=== PATIENT | male | born 1965 | race Two or more races ===

== ENCOUNTER 2018-12-10 14:22 | Emergency (ER) | payer OTHER, MEDICAID ==
[~2018-12-10] VITALS: Ht 172.7 cm; Wt 96.2 kg
[~2018-12-10 14:22] MED LIST: ASPI81CH43 PO; ATOR40TA52 PO
[2018-12-10 14:31] VITALS: BP 106/73
== END 2018-12-10 15:48 | disposition home or self-care (01) ==
LOC: ER 14:24
DX: S93.401A Sprain of unspecified ligament of right ankle, initial encounter (principal); S16.1XXA Strain of muscle, fascia and tendon at neck level, initial encounter; E78.5 Hyperlipidemia, unspecified; I10 Essential (primary) hypertension; Z79.82 Long term (current) use of aspirin; Z79.899 Other long term (current) drug therapy; Y93.89 Activity, other specified; V49.49XA Driver injured in collision with other motor vehicles in traffic accident, initial encounter; Y99.8 Other external cause status; Y92.488 Other paved roadways as the place of occurrence of the external cause
CPT/HCPCS: 72040; 73630

== ENCOUNTER 2019-01-28 09:53 | Emergency (ER) | payer OTHER, MEDICAID ==
[~2019-01-28] VITALS: Ht 172.7 cm; Wt 95.3 kg
[2019-01-28] MEDS ORDERED: ERYTHROMY OPTH OINT 5mg/gm 1gm OP ONE (17:30)
[2019-01-28] MEDS ORDERED: TETRACAINE HCL 0.5% OPTH(EYE) SOLN 4ML RIGHTEYE ONE (17:30)
[2019-01-28 17:39] VITALS: BP 105/66
[2019-01-28] MEDS ORDERED: TETRACAINE HCL 0.5% OPTH(EYE) SOLN 4ML ONE (17:40)
[2019-01-28] MEDS ORDERED: FLUORESCEIN SOD 1 MG TEST STRIP RIGHTEYE ONE (17:45)
== END 2019-01-28 15:27 | disposition home or self-care (01) ==
LOC: ER 10:01
DX: S00.11XA Contusion of right eyelid and periocular area, initial encounter (principal); S05.01XA Injury of conjunctiva and corneal abrasion without foreign body, right eye, initial encounter; I25.10 Atherosclerotic heart disease of native coronary artery without angina pectoris; E78.00 Pure hypercholesterolemia, unspecified; I10 Essential (primary) hypertension; Z79.82 Long term (current) use of aspirin; Z79.899 Other long term (current) drug therapy; X58.XXXA Exposure to other specified factors, initial encounter; Y93.89 Activity, other specified; Y92.89 Other specified places as the place of occurrence of the external cause; Y99.8 Other external cause status
CPT/HCPCS: 70480

== ENCOUNTER 2022-02-09 11:15 | Emergency (ER) | payer OTHER, MEDICAID ==
[~2022-02-09] VITALS: Ht 172.7 cm; Wt 77.2 kg
[2022-02-09] MEDS ORDERED: NAP500T PO (12:58)
[2022-02-09] MEDS ORDERED: CYCL-837 PO (12:58)
[2022-02-09 15:38] VITALS: BP 118/74
== END 2022-02-09 16:05 | disposition home or self-care (01) ==
LOC: ER 11:15
DX: S22.008A Other fracture of unspecified thoracic vertebra, initial encounter for closed fracture (principal); S39.012A Strain of muscle, fascia and tendon of lower back, initial encounter; S16.1XXA Strain of muscle, fascia and tendon at neck level, initial encounter; I10 Essential (primary) hypertension; I25.10 Atherosclerotic heart disease of native coronary artery without angina pectoris; I25.2 Old myocardial infarction; E78.5 Hyperlipidemia, unspecified; Z79.82 Long term (current) use of aspirin; Z79.899 Other long term (current) drug therapy; V43.52XA Car driver injured in collision with other type car in traffic accident, initial encounter; Y93.89 Activity, other specified; Y92.410 Unspecified street and highway as the place of occurrence of the external cause; Y99.8 Other external cause status
CPT/HCPCS: 72070; 72128

== ENCOUNTER → 2022-06-19 | Emergency (ER) | payer OTHER, MEDICAID ==
[~2022-06-19] VITALS: Ht 175.3 cm; Wt 110.0 kg
[~2022-06-19] MED LIST changes: +ACET1CAP14 PO; +ASPirin 81 mg TAB PO ONE; +CYCL-837 PO; +NAP500T PO; +NITROGLYCERIN 0.4 MG SL TAB SL ONE; +SODIUM CHLORIDE 0.9% 1,000 ML IV ONE
[2022-06-19 00:41] LABS: Basophils # (auto) 0 10 ^3/uL (0-0.2); Basophils % (auto) 0.5 % (0.0-2.0); Eosinophils # (auto) 0.2 10 ^3/uL (0-0.8); Eosinophils % (auto) 3.2 % (0.0-7.0); Hematocrit 51.1 % (41.0-53.0); Hemoglobin 17.1 g/dL (13.5-17.5); Lymphocytes # (auto) 2.2 10 ^3/uL (0.4-5.4); Lymphocytes % (auto) 29.9 % (10.0-50.0); Mean Corpuscular Hemoglobin 30.7 pg (28.0-32.0); Mean Corpuscular Hgb Conc. 33.4 g/dL (32.0-36.0); Mean Corpuscular Volume 91.7 fL (80.0-100.0); Monocytes # (auto) 0.6 10 ^3/uL (0-1.3); Monocytes % (auto) 8.4 % (0.0-12.0); Neutrophils # (auto) 4.2 10 ^3/uL (1.6-8.6); Nucleated Red Blood Cells % 0.1 %; Red Blood Cells 5.57 10^6/uL (4.5-5.90); Red Cell Distribution Width 13.7 % (11.8-14.3); White Blood Cell 7.3 10^3/uL (4.4-10.8)
[2022-06-19 01:11] LABS: Albumin 3.4 g/dL (3.4-5.0); BUN/Creatinine Ratio 18.9; Calcium 9.2 mg/dL (8.5-10.1); Potassium 3.9 mmol/L (3.5-5.1)
[2022-06-19 01:13] LABS: Bilirubin, Total 0.5 mg/dL (0.2-1.0); Total Protein 6.9 g/dL (6.4-8.2)
[2022-06-19 01:18] LABS: INR 0.99 (0.9-1.15); Partial Thromboplastin Time 27.9 sec (24.6-33.4)
[2022-06-19 05:18] VITALS: BP 123/74
== END | disposition home or self-care (01) ==
LOC: ER 00:10 → EDUNIT# 00:10 → EDBD 00:10
DX: R07.89 Other chest pain (principal); E78.5 Hyperlipidemia, unspecified; I10 Essential (primary) hypertension; I25.2 Old myocardial infarction; Z87.442 Personal history of urinary calculi
CPT/HCPCS: 36415; 71045; 80053; 83735; 83880; 84484; 85025; 85379; 85610; 85730; 93005